=== PATIENT | female | born 1945 | race Caucasian/White ===

== ENCOUNTER 2020-09-14 17:38 | Emergency (ER) | payer OTHER ==
--- OUTSIDE RECORDS SUMMARY | 2020-09-14 17:40 | XMS REPORT | Summary of Care ---
:1945 Author Organization [facility] - Health Address [address] [place] [address] Care Team Providers Name Role Phone Nathen Wilson Primary Care Provider Encounter Details Date Type Department Care Team Description 09/09/2020 Letter (Out) [facility] [employer] Message s Doctor Unassigned, No [address] [facility] [place] [address] [facility] [phone] [place] [address] Allergies Not on Filedocumented as of this encounter (statuses as of 09/09/2020) Medications Not on filedocumented as of this encounter (statuses as of 09/09/2020) Active Problems Not on filedocumented as of this encounter (statuses as of 09/09/2020) Social History Tobacco Use Types Packs/Day Years Used Date Never Assessed Sex Assigned at Date Recorded Not on file documented as of this encounter Last Filed Vital Signs Not on filedocumented in this encounter Plan of Treatment Health Maintenance Due Date Last Done Comments HEPATITIS C (HCV) SCREEN 1945 Depression Screening 1957 DTaP,Tdap,and Td Vaccines (1 - Tdap) 1964 Breast Cancer Screening (MAMMOGRAM) 1985 COLON CANCER SCREENING ANNUAL FIT/FOBT 1995 COLON CANCER SCREENING FIT DNA EVERY 3 YEARS 1995 COLON CANCER SCREENING SIGMOIDOSCOPY EVERY 5 YEARS 1995 COLONOSCOPY 1995 Colorectal Cancer Screening 1995 Zoster Recombinant Vaccine (SHINGRIX) (1 of 2) 1995 Medicare Wellness Visit 2010 Osteoporosis Screening 2010 PNEUMOCOCCAL VACCINES 65+ (1 of 1 - PPSV23) 2010 INFLUENZA VACCINE (#1) 2020 documented as of this encounter Results Not on filedocumented in this encounter Insurance Payer Benefit Plan Subscriber ID Effective Phone Address Typ e / Group Dates [employer] [facility] [id number] 2011-Shayy PPO nt MEDICARE MEDICARE PART [id number] 2010-Shayy [phone] [address] X Medicare A & B nt [id number] [place] [id number] documented as of this encounter
--- OUTSIDE RECORDS SUMMARY | 2020-09-14 17:40 | XMS REPORT | Clinical Summary ---
:1945 Author Organization [facility] Address [address] [place] [address] Care Team Providers Name Role Phone Rayo Wilson MD Primary Care Provider Allergies Not on File Medications Not on file Active Problems Not on file Encounters Date Type Specialty Care Team Description 08/26/2020 Hospital Encounter Radiology Rayo Wilson MD Hype rlipidemia, unspecified 08/26/2020 Hospital Encounter Radiology Rayo Wilson MD Hype rlipidemia, unspecified 08/26/2020 Travel 08/11/2020 Travel 08/10/2020 Transcribe Orders Access Rayo Wilson MD Hyper lipidemia, unspecified (Primary Dx) after 09/14/2019 Social History Tobacco Use Types Packs/Day Years Used Date Never Assessed Sex Assigned at Date Recorded Not on file COVID-19 Exposure Response Date Recorded In the last month, have you been in contact with No / Unsure 08/26/2020 12:46 PM CDT someone who was confirmed or suspected to have Coronavirus / COVID-19? Last Filed Vital Signs Not on file Plan of Treatment Health Maintenance Due Date Last Done Comments BREAST CANCER SCREENING 1995 COLONOSCOPY SCREENING 1995 SHINGLES VACCINES (#1) 1995 65+ PNEUMOCOCCAL VACCINE (1 of 1 - PPSV23) 2010 INFLUENZA VACCINE 05/28/2020 Procedures Procedure Name Priority Date/Time Associated Diagnosis Comme nts US VASCULAR Routine 08/26/2020 3:06 PM Hyperlipidemia, Resul ts for this SCREENING HEART CDT unspecified procedure ar e in SCAN PLUS the results section. CT HEART SCAN PLUS Routine 08/26/2020 2:00 PM Hyperlipidemia, Results for this W PHYSICIAN ORDER CDT unspecified procedure are in the results section. after 09/14/2019 Results Pv vascular screening heart scan plus (self pay) (08/26/2020 3:06 PM CDT) Specimen Narrative Performed At EXAM: US VASCULAR SCREENING HEART SCAN P PANCHO [facility] INDICATION: E78.5 Hyperlipidemia unspe cified, E78.5 TECHNIQUE: Screening ultrasound of the abdominal aorta and bilateral carotids was performed. Segmental pressures with bilat eral SHEILA was determined. COMPARISON:None. FINDINGS: Right brachial: 117 mmHg Ankle PT: 133 with index 1.11 Ankle DP: 123 with index 1.03 Left brachial: 120 mmHg Ankle PT: 123 mmHg, with index 1.03 Ankle DP: 127 mmHg, with index 1.06 No significant atherosclerotic plaque and no aneurys mal dilation of the abdominal aorta. Mild diffuse intimal thickening and scattered partly c alcified plaque of the imaged portion of the carotid arteri es. IMPRESSION: No significant abnormality. SHEILA Guidelines: >1.4: Calcified Vessel 0.9-1.4: Normal 0.7-0.89: Mild PAD 0.51-0.69: Moderate PAD <0.5: Severe PAD Procedure Note Interface, Radiology Results Incoming - 08/26/2020 3:26 PM CDT EXAM: US VASCULAR SCREENING HEART SCAN PLUS INDICATION: E78.5 Hyperlipidemia unspec ified, E78.5 TECHNIQUE: Screening ultrasound of the a bdominal aorta and bilateral carotids was performed. Segmental pressures with bilateral SHEILA was determined. COMPARISON:None. FINDINGS: Right brachial: 117 mmHg Ankle PT: 133 with index 1.11 Ankle DP: 123 with index 1.03 Left brachial: 120 mmHg Ankle PT: 123 mmHg, with index 1.03 Ankle DP: 127 mmHg, with index 1.06 No significant atherosclerotic plaque an d no aneurysmal dilation of the abdominal aorta. Mild diffuse intimal thickening and scat tered partly calcified plaque of the imaged portion of the carotid arteries. IMPRESSION: No significant abnormality. SHEILA Guidelines: >1.4: Calcified Vessel 0.9-1.4: Normal 0.7-0.89: Mild PAD 0.51-0.69: Moderate PAD <0.5: Severe PAD Performing Organization Address City/State/ZIP Code Phon e Number [facility] [address] [place] [address] Ct heart scan plus w physician order (self pay) (08/26/2020 2:00 PM CDT) Specimen Narrative Performed At This result has an attachment that is no t available. [facility] Nuclear[facility]CT Cardiology Labo ratory [address] [address] [place] [address] CT Calcium Scoring Re port Pat.Name: TERRI BROWN.ID: [id number] .Date: 08/26/2020 Refer.MD: RAYO WILSON MD Exam Time: 2:03:00 PM Study Type:CT Calcium Scoring Height: 60in Weight: 175lb BSA: 1.77 m2 Age: 9 1945,75Y Sex: FEMALE HR: 72 bpm Nuclear Tech:Crystal Weathers, RT(R)(CT) Pat. Stat.:Outpatient Nuclear Event ID:[id number] Order ID: [id number] Reason for Study:Screening for IHD History / Clinical:Screening for IHD Procedures: CT Flash Mode (Diastolic Phase), CT Flash Mode (Systolic Phase) Race: Not or Visit ID: [id number] SUMMARY: Technique: Sequential 3mm CT cuts were obtained through the chest using the Siemens Somatom Force CT scanner with ECG gating. In teractive image viewing and volumetric display and analysis were also performed. The CAC score was quantified using the Agatston scoring me thod. Non-contrast Cardiac CT results are as follows: The total Coronary Artery Calcium Score (CACS) is 179 . Calcium is distributed in the coronary arteries as follows: Left main: 0 . Left Anterior Descending (LAD): 179 . Left Circumflex (LCx): 0 . Right Coronary Artery (RCA): 0 . The non-contrast CT shows a normal cardiac size, no pe ricardial abnormalities, a normal aortic root of 3.0 cm, a aura l thoracic ascending aorta of 2.9cm, and a normal descending thor acic aorta of 2.3cm. The left main and right coronary arteries appea r to originate normally from the left and right sinus of Valsalva. The right coronary artery is dominant. Non-Cardiac Findings: Small hiatal hernia. Conclusion: Abnormal non-contrast cardiac CT. The coronary artery calcium score indicates a moderate extent of coronary atherosclerosi s with a 1-2% / year risk of a major cardiac event. The CACS is at t he 70th percentile based on age and gender. Recommendation: (1) Intensive risk factor modification is indicated to prevent further progression of coronary atherosclerosis. Unless cont raindicated, low dose aspirin (81mg) is recommended in addition to albin tment of hyperlipidemia with target LDL levels <70mg/dl. (2) Stress myocardial perfusion imaging may be helpful in selected patients such as those with metabolic syndrome or diab etes mellitus in whom silent myocardial ischemia is more prevalent. FINDINGS: Signed 08/26/2020 08:02 PM Randall Barriga MD Procedure Note Interface, Radiology Results In - 2019 8:03 PM CDT [facility] Nuclear/CT Cardiology Laboratory [address] [place] [address] CT Calcium Scoring Report Pat.Name: TERRI BROWN I D: [id number] .Date: 08/26/2020 Refer .MD: RAYO WILSON MD Exam Time: 2:03:00 PM Study Type:CT Calcium Scoring Height: 60in Weigh t: 175lb BSA: 1.77 m2 Age: 9 1945,75Y Sex: FEMALE HR: 72 bpm Nuclear Tech:RT Pascual(Jaylen)(CT) Pat. Stat.:Outpatient Nuclear Event ID:[id number] Order ID: [id number] Reason for Study:Screening for IHD History / Clinical:Screening for IHD Procedures: CT Flash Mode (Diastolic Pha se), CT Flash Mode (Systolic Phase) Race: Not or Visit ID: [id number] SUMMARY: Technique: Sequential 3mm CT cuts were obtained thr ough the chest using the Siemens Somatom Force CT scanner with EC G gating. Interactive image viewing and volumetric display and randy sis were also performed. The CAC score was quantified using the Agats ton scoring method. Non-contrast Cardiac CT results are as f ollows: The total Coronary Artery Calcium Score (CACS) is 179 . Calcium is distributed in the coronary arteries as follows: Left main: 0 . Left Anterior Descending (LAD): 179 . Left Circumflex (LCx): 0 . Right Coronary Artery (RCA): 0 . The non-contrast CT shows a normal cardi ac size, no pericardial abnormalities, a normal aortic root of 3 .0 cm, a normal thoracic ascending aorta of 2.9cm, and a normal d escending thoracic aorta of 2.3cm. The left main and right coronary arteries appear to originate normally from the left and right sinus o f Valsalva. The right coronary artery is dominant. Non-Cardiac Findings: Small hiatal adair ia. Conclusion: Abnormal non-contrast cardiac CT. The co ronary artery calcium score indicates a moderate extent of coronary atherosclerosis with a 1-2% / year risk of a major cardiac event. The CACS is at the 70th percentile based on age and gender. Recommendation: (1) Intensive risk factor modification i s indicated to prevent further progression of coronary atherosclerosis. Unless contraindicated, low dose aspirin (81mg) is recommended in ad dition to treatment of hyperlipidemia with target LDL levels <7 0mg/dl. (2) Stress myocardial perfusion imaging may be helpful in selected patients such as those with metabolic sy ndrome or diabetes mellitus in whom silent myocardial ischemia is more prevalent. 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
--- OUTSIDE RECORDS SUMMARY | 2020-09-14 17:40 | XMS REPORT | Summary of Care ---
:1945 Author Organization [facility] - [facility] Address [address] [place] [address] Care Team Providers Name Role Phone Nathen Wlison Primary Care Provider Reason for Visit Reason Comments Cough Congestion Encounter Details Date Type Department Care Team Description 09/09/2020 Laboratory Only [facility] Health Family Joseph Perera FNP [id number] [place] [address] Exposure to Medicine - [facility], Adc Fam Pob I SARS-associated [address] [facility] coronaviru s ([address] Drive Dx) [place] [address] Allergies Not on Filedocumented as of this [...] of this encounter Last Filed Vital Signs Vital Sign Reading Time Taken Comments Blood Pressure - - Pulse 78 09/09/2020 11:00 AM PROFESSOR OF VOICE Temperature - - Respiratory Rate 16 09/09/2020 11:00 AM PROFESSOR OF VOICE Oxygen Saturation 98% 09/09/2020 11:00 AM PROFESSOR OF VOICE Inhaled Oxygen Concentration - - Weight - - Height - - Body Mass Index - - documented in this encounter Nursing Notes Thuy March LVN - 09/09/2020 1:40 PM CSTDulce Brown is a 75 year old female here for a Rule Out Covid-19 Nasopharyngeal Swab. Patient educated on plan of care for visit, swabbing technique, risks and benefits of test and length of time toreceive results. Verbal consent obtained to perform test. CDC Fact Sheet for Patients provided to patient. All droplet and contact precautions taken with appropriate PPE worn while interacting with patient. - Goggles - N95 Mask - Gloves - Gown RR=16 % O2 Sat=98 Patient swabbed using appropriate nasopharyngeal technique, and patient tolerated well. Patient was discharged in stable condition. THUY MARCH LVN 09/09/2020 2:09 PM ESSOR OF VOICE documented in this encounter Plan of Treatment Name Type Priority Associated Diagnoses Order S adryan COVID-19 (MOLECULAR LAB Routine Exposure to Expected : 09/09/2020, TESTING SARS-associated Expires: 021 NUCLEIC ACID coronavirus AMPLIFICATION) Health Maintenance Due Date Last Done Comments [...] Results Not on filedocumented in this encounter Visit Diagnoses Diagnosis Exposure to SARS-associated coronavirus - Primary documented in this encounter Additional Health Concerns Infection Onset Date Last Indicated Resolved Time COVID-19 Rule Out 09/09/2020 09/09/2020 documented as of this encounter Insurance Payer Benefit Plan / Subscriber ID Effective Dates Phone Addre ss Type Group MEDICARE MEDICARE PART [id number] 2010-Kevin [phone] [address] Medicare A & B t 2 [id number] [place] [phone] (Work) documented as of this encounter
--- OUTSIDE RECORDS SUMMARY | 2020-09-14 17:40 | XMS REPORT | Continuity of Care Document ---
:1945 Author Organization [facility] t Address [address] [place] [address] Care Team Providers Name Role Phone Katie ABEL Primary Care Physician Lab, Fam Pob I Attending Clinician Unavailable Katie ABEL Attending Clinician + Problems This patient has no known problems. Allergies, Adverse Reactions, Alerts This patient has no known allergies or adverse reactions. Social History Social Habit Start Date Stop Date Quantity Comments Source Sex Assigned At Doe Madden Exposure to SARS-CoV-2 Not sure Chalino Madden (event) Medications This patient has no known medications. Procedures Procedure Date / Time Performed Performing Clinician [facility] e US VASCULAR SCREENING 2020-08-26 15:06:51 Nathen Wilson HEART SCAN PLUS CT HEART SCAN PLUS W 2020-08-26 14:00:00 Nathen Wilson PHYSICIAN ORDER Plan of Care Planned Activity Planned Date Details Comments Source Future Scheduled 2020-05-28 INFLUENZA VACCINE Elmer Madden Test 00:00:00 [code = INFLUENZA VACCINE] Future Scheduled 2010 65+ PNEUMOCOCCAL Eduardo Madden Test 00:00:00 VACCINE (1 of 1 - PPSV23) [code = 65+ PNEUMOCOCCAL VACCINE (1 of 1 - PPSV23)] Future Scheduled 1995 BREAST CANCER Eduardo Keen thodist Test 00:00:00 SCREENING [code = BREAST CANCER SCREENING] Future Scheduled 1995 COLONOSCOPY SCREENING Chalino Madden Test 00:00:00 [code = COLONOSCOPY SCREENING] Future Scheduled 1995 SHINGLES VACCINES (#1) H kris Islam Test 00:00:00 [code = SHINGLES VACCINES (#1)] Encounters Start End Encounter Admission Attending Care Care Encounter Source Date/Time Date/Time Type Type Clinicians Facility Department ID 2020-09-09 2020-09-09 Laboratory Lab, [facility] [id number] 13:58:04 14:18:04 Only Fam Pob I Health [id number] [place] [id number] Professio [id number] nal [address] 2020-08-26 2020-08-26 Outpatient [facility] [id number] [place] 00:00:00 00:00:00 NATHEN [address] [facility] 2020-08-26 2020-08-26 Outpatient [facility] [id number] [place] 00:00:00 00:00:00 NATHEN [address] Results Test Description Test Time Test Comments Results Result Sourc e Comments Ct heart scan 2020-07-30 Interface, Radiology kris plus w physician 0 Results In - Method ist order (self pay) 20:02:00 08/26/2020 8:03 PM CDT [facility] Nuclear/CT Cardiology Laboratory [address] [place] [address] CT Calcium Scoring ReportPat.Name: TERRI MEDRANO Pat.ID: [id number] .Date: 08/26/2020 Refer.MD: NATHEN WILSON MD Exam Time: 2:03:00 PM Study Type:CT Calcium Scoring Height: 60in Weight: 175lb BSA: 1.77 m2 Age: 9 1945,75Y Sex: FEMALE HR: 72 bpm Nuclear Tech:RT Pascual(R)(CT)Pat. Stat.:Outpatient Nuclear Event ID:[id number] Order ID: [id number] Reason for Study:Screening for IHD History / Clinical:Screening for IHDProcedures: CT Flash Mode (Diastolic Phase), CT Flash Mode (SystolicPhase)Race: Not or Visit ID: 69 SUMMARY: Techniqu e: Sequential 3mm CT cuts were obtained through the chest [facility] scanner with ECG gating. Interactive imageviewing and volumetric display and analysis were also performed. TheCAC score was quantified using the Agatston scoring method.Non-contrast Cardiac CT results are as follows:The total Coronary Artery Calcium Score (CACS) is 179 . Calcium isdistributed in the coronary arteries as follows:Left main: 0 . Left Anterior Descending (LAD): 179 . Left Circumflex(LCx): 0 . Right Coronary Artery (RCA): 0 . The non-contrast CT shows a normal cardiac size, no pericardialabnormaliti es, a normal aortic root of 3.0 cm, a normal thoracicascending aorta of 2.9cm, and a normal descending thoracic aorta of2.3cm. The left main and right coronary arteries appear to originatenormally from the left and right sinus of Valsalva. The right coronary artery is dominant.Non-Cardiac Findings: Small hiatal hernia.Conclusion:Abno rmal non-contrast cardiac CT. The coronary artery calcium scoreindicates a moderate extent of coronary atherosclerosis with a 1-2% /year risk of a major cardiac event. The CACS is at the 70thpercentile based on age and gender. Recommendation:(1) Intensive risk factor modification is indicated to prevent furtherprogression of coronary atherosclerosis. Unless contraindicated, lowdose aspirin (81mg) is recommended in addition to treatment ofhyperlipidemia with target LDL levels <70mg/dl.(2) Stress myocardial perfusion imaging may be helpful in selectedpatients such as those with metabolic syndrome or diabetes mellitus inwhom silent myocardial ischemia is more prevalent. FINDINGS : Signed 08/26/2020 08:02 Ioana Barriga MD Pv vascular 2020-07-3 [facility] 0 Radiology Results [place] [facility] scan plus (self 15:23:05 Incoming - 08/26/2020 pay) 3:26 PM CDTEXAM: US VASCULAR SCREENING HEART SCAN PLUSINDICATION: E78.5 Hyperlipidemia unspecified, E78.5TECHNIQUE: Screening ultrasound of the abdominal aorta and bilateral carotids was performed. Segmental pressures with bilateral SHEILA was determined.COMPARISON: None. FINDINGS:Right brachial: 117 mmHgAnkle PT: 133 with index 1.11 Ankle DP: 123 with index 1.03 Left brachial: 120 mmHgAnkle PT: 123 mmHg, with index 1.03 Ankle DP: 127 mmHg, with index 1.06 No significant atherosclerotic plaque and no aneurysmal dilation of the abdominal aorta.Mild diffuse intimal thickening and scattered partly calcified plaque of the imaged portion of the carotid arteries.IMPRESSION:No significant abnormality.SHEILA Guidelines:>1.4: Calcified Vessel0.9-1.4: Normal0.7-0.89: Mild PAD0.51-0.69: Moderate PAD<0.5: Severe PAD
--- OUTSIDE RECORDS SUMMARY | 2020-09-14 17:40 | XMS REPORT | Summary of Care ---
:1945 Author Organization [facility] - [facility] Address [address] [place] [address] Care Team Providers Name Role Phone Nathen Wilson Primary Care Provider Reason for Visit Reason Comments Cough Congestion Encounter Details Date Type Department Care Team Description 09/09/2020 Laboratory Only [facility] Health Family Joseph Perera FNP [address] [place] [address] Exposure to Medicine - [place] [facility], Adc Fam Pob I SARS-associated [address] [facility] coronaviru s ([address] Dx) [place] [address] Allergies Not on Filedocumented as [...] - - Pulse 78 09/09/2020 11:00 AM INFORMATION SECURITY MANAGER Temperature - - Respiratory Rate 16 09/09/2020 11:00 AM INFORMATION SECURITY MANAGER Oxygen Saturation 98% 09/09/2020 11:00 AM INFORMATION SECURITY MANAGER Inhaled Oxygen Concentration - - Weight - [...] condition. THUY MARCH LVN 09/09/2020 2:09 PM RMATION SECURITY MANAGER documented in this encounter Plan of Treatment [...] Addre ss Type Group MEDICARE MEDICARE PART [id number] 2010-Kevin [phone] [address] Medicare A & B t 2 [id number] GARR[place] JAIME [phone] (Work) documented as of this encounter
--- NOTE | 2020-09-14 18:00 | ER ---
Nurse's Notes [facility] Name: Dulce Brown Age: 75 yrs Sex: Female : 1945 Arrival Date: 09/14/2020 Time: 17:40 Bed Waiting Private MD: Nathen Wilson V Diagnosis: Presentation: 09/14 17:43 Chief complaint: Patient states: sent by Dr Wilson because her O2 sat at home was 88-92% sv at home. Denies SOB and got the COVID + results on Saturday. Symptoms started on Sat. Coronavirus screen: Client denies travel out of the [place] in the last 14 days. Client presents with at least one sign or symptom that may indicate coronavirus-19. Standard/surgical mask placed on the client. Provider contacted for isolation considerations. Client reports previous positive COVID test result. Ebola Screen: No symptoms or risks identified at this time. Risk Assessment: Do you want to hurt yourself or someone else? Patient reports no desire to harm self or others. Onset of symptoms was September 07, 2020. 17:43 Method Of Arrival: Ambulatory sv 17:43 Acuity: LAURI 3 sv 17:47 Initial Sepsis Screen: Does the patient meet any 2 criteria? No. Patient's initial sv sepsis screen is negative. Does the patient have a suspected source of infection? No. Patient's initial sepsis screen is negative. 17:51 Note Pt has a home O2 sat probe at home and they brought it with them. They put it on sv at the same time as the hospital O2 sat probe and their number was 92%, while mine said 97%. Triage Assessment: 17:50 General: Appears in no apparent distress. comfortable, well groomed, well developed, sv Behavior is calm, cooperative, appropriate for age. Pain: Denies pain. Neuro: Level of Consciousness is awake, alert, obeys commands, Oriented to person, place, time, situation, Moves all extremities. Full function Gait is steady, Speech is normal. Respiratory: Respiratory effort is even, unlabored, Respiratory pattern is regular, symmetrical, Denies shortness of breath. Historical: - Allergies: 17:47 No Known Allergies; sv - PSHx: 17:47 None; sv Assessment: 17:57 Reassessment: Pt and spouse decided that they would go home. They stated that they sv probably have a defective O2 sat probe device. They would call Dr Wilson in the morning to see if he could just check her in the office tomorrow. Informed pt and spouse to return to the ER if any severe SOB or CP were to occur. Pt and spouse understood. Vital Signs: 17:47 Pulse Ox 97% on R/A; sv 17:47 BP 123 / 59; Pulse 86; Resp 16; sv ED Course: 17:40 Patient arrived in ED. as 17:40 Nathen Wilson MD is Private Physician. as 17:46 Triage completed. sv 17:47 Arm band placed on. sv Administered Medications: No medications were administered Outcome: 17:59 Eloped from waiting room, before seeing physician Time discovered patient gone: sv September 14, 2020 at 17:59 17:59 Patient left the ED. sv Signatures: Thuy Giraldo, RN RN Dionne Smith as
[2020-09-14 23:17] VITALS: BP 123/59; O2SAT 97
== END 2020-09-14 17:59 | disposition left against medical advice (07) ==
LOC: ER 17:38
DX: Z53.21 Procedure and treatment not carried out due to patient leaving prior to being seen by health care provider (principal)
CPT/HCPCS: 99281